=== PATIENT | male | born 1950 | race Caucasian/White ===

== ENCOUNTER 2021-08-23 04:04 | Inpatient (IN) ==
[2021-08-23] MEDS ORDERED: Naloxone 0.4 MG/ML INJ IVP PRN (07:37)
[2021-08-23] MEDS ORDERED: Ondansetron 4 MG/2 ML VIAL IVP PRN (07:37)
[2021-08-23] MEDS ORDERED: D5% in Water 1,000 ML IVC PRN (07:42)
[2021-08-23] MEDS ORDERED: *HR* Dextrose 50 % in Water (Syg) 50 ML SYRINGE IVP PRN (07:42)
[2021-08-23] MEDS ORDERED: Dextrose Gel 15 GM/37.5 ML TUBE PO PRN ×2 (07:42)
[2021-08-23] MEDS: Budesonide/Formoterol 160/4.5 1 PUFF INH IH SCH ×2 (10:10→20:22)
[2021-08-23] MEDS: Ipratropium/Albuterol Neb 3 ML IH SCH ×3 (10:10→20:21)
[2021-08-23] MEDS: Nicotine 21 MG PATCH.TD24 TD SCH (11:05)
[2021-08-23] MEDS ORDERED: Insulin LISPRO 300 UNITS/3 ML VIAL SUBQ SCH ×2 (11:30→21:00)
[2021-08-23] MEDS ORDERED: *HR* Phytonadione 5 MG TABLET PO ONE (12:58)
[2021-08-23] MEDS: Piperacillin/Tazobactam 3.375 GM in 0.9 % Sodium Chloride Mini Bag 100 ML IVPB SCH ×2 (13:56→18:30)
[2021-08-23] MEDS ORDERED: Gadolinium Contrast Agent (WT Based) IV PRN (14:46)
[2021-08-23] MEDS ORDERED: *HR* LORazepam 2 MG/ML VIAL IVP ONE ×2 (16:04→17:59)
[2021-08-23] MEDS ORDERED: Isovue-370 500 ML BOTTLE IVP ONE (17:58)
[2021-08-23] MEDS: *HR* Digoxin 0.25 MG TABLET PO SCH (18:29)
[2021-08-23] MEDS: MethylPREDNISolone 40 MG/ML VIAL IVP SCH (18:30)
[2021-08-23] MEDS: Insulin LISPRO 300 UNITS/3 ML VIAL SUBQ SCH ×2 (18:53→20:34)
[2021-08-23] MEDS ORDERED: Azithromycin 500 MG in 0.9 % Sodium Chloride 250 ML IVPB SCH (21:00)
[2021-08-23 21:45] LABS: INR 2.4; Prothrombin Time 26.2 Seconds (9.4-12.1)
[2021-08-23] MEDS: Doxycycline 100 MG in 0.9 % Sodium Chloride Mini Bag 100 ML IVPB SCH (22:50)
[2021-08-24] MEDS: MethylPREDNISolone 40 MG/ML VIAL IVP SCH ×4 (00:09→22:59)
[2021-08-24] MEDS: Piperacillin/Tazobactam 3.375 GM in 0.9 % Sodium Chloride Mini Bag 100 ML IVPB SCH ×4 (00:09→23:55)
[2021-08-24 02:38] LABS: Basophils % 0.3 %; Hematocrit 38.4 % (37.5-50.1); Hemoglobin 12.2 g/dL (12.9-16.9); Immature Granulocytes % 1.6 % (0-4); Lymphocytes # 0.6 K/mcL (0.6-4.6); Lymphocytes % 5.6 %; Mean Corpuscular HGB Conc 31.8 g/dL (31.6-35.5); Mean Corpuscular Hemoglobin 28.2 pg (28.0-33.3); Mean Corpuscular Volume 88.7 fL (83.0-100.0); Mean Platelet Volume 11.1 fL (9.4-12.4); Monocytes # 0.4 K/mcL (0.0-1.3); Monocytes % 3.5 %; Neutrophils # 9.6 K/mcL (1.6-8.9); Platelet Count 245 K/mcL (140-400); Red Blood Count 4.33 M/mcL (4.19-5.50); Red Cell Distribution Width 16.8 % (11.5-14.5); White Blood Count 10.7 K/mcL (4.3-11.1)
[2021-08-24 02:39] LABS: BUN/Creatinine Ratio 39 (6-26); Blood Urea Nitrogen 26 mg/dL (8-23); Calcium 8.1 mg/dL (8.6-10.3); Carbon Dioxide 26 mEq/L (23-29); Chloride 99 mEq/L (98-107); Glucose 259 mg/dL (70-105); Magnesium 1.8 mg/dL (1.6-2.6); Osmolality,Calculated 290 (280-300); Potassium 4.7 mEq/L (3.5-5.1); Sodium 133 mEq/L (136-145); eGFR For African Americans > 60 (> 60); eGFR For Non-African Americans > 60 (> 60)
[2021-08-24 02:52] LABS: INR 1.9; Prothrombin Time 20.6 Seconds (9.4-12.1)
[2021-08-24] MEDS: Ipratropium/Albuterol Neb 3 ML IH SCH ×4 (03:54→20:28)
[2021-08-24] MEDS: Insulin LISPRO 300 UNITS/3 ML VIAL SUBQ SCH ×4 (09:02→20:37)
[2021-08-24] MEDS: lisinopriL 20 MG TABLET PO SCH (09:05)
[2021-08-24] MEDS: Furosemide 20 MG TABLET PO SCH (09:05)
[2021-08-24] MEDS: amLODIPine 5 MG TABLET PO SCH (09:05)
[2021-08-24] MEDS: *HR* Digoxin 0.25 MG TABLET PO SCH (09:05)
[2021-08-24] MEDS: Budesonide/Formoterol 160/4.5 1 PUFF INH IH SCH ×2 (09:42→20:29)
[2021-08-24] MEDS ORDERED: Lidocaine -MPF 2% 5 ML VIAL ONE (11:21)
[2021-08-24] MEDS ORDERED: *HR* Propofol 200 MG/20 ML VIAL IVP ONE ×3 (11:51→12:36)
[2021-08-24] MEDS ORDERED: Ondansetron 4 MG/2 ML VIAL ONE (12:02)
[2021-08-24] MEDS ORDERED: Lidocaine -MPF 4% 5 ML AMPUL ONE (12:02)
[2021-08-24] MEDS ORDERED: *HR* Succinylcholine 200 MG/10 ML VIAL IVP ONE (12:02)
[2021-08-24] MEDS ORDERED: *HR* FentaNYL (PF) 100 MCG/2 ML VIAL ONE (12:02)
[2021-08-24] MEDS: Doxycycline 100 MG in 0.9 % Sodium Chloride Mini Bag 100 ML IVPB SCH ×2 (13:23→22:28)
[2021-08-24] MEDS: Insulin DETEMIR 100 UNIT/ML X5UNITS SUBQ SCH (16:26)
[2021-08-24] MEDS: Nicotine 21 MG PATCH.TD24 TD SCH (16:26)
[2021-08-25 02:39] LABS: Basophils % 0.1 %; Hematocrit 35.1 % (37.5-50.1); Hemoglobin 11.3 g/dL (12.9-16.9); Immature Granulocytes % 1.4 % (0-4); Lymphocytes # 0.5 K/mcL (0.6-4.6); Lymphocytes % 4.4 %; Mean Corpuscular HGB Conc 32.2 g/dL (31.6-35.5); Mean Corpuscular Hemoglobin 28.5 pg (28.0-33.3); Mean Corpuscular Volume 88.4 fL (83.0-100.0); Mean Platelet Volume 11.2 fL (9.4-12.4); Monocytes # 0.5 K/mcL (0.0-1.3); Monocytes % 4.3 %; Neutrophils # 10.4 K/mcL (1.6-8.9); Platelet Count 248 K/mcL (140-400); Red Blood Count 3.97 M/mcL (4.19-5.50); Segmented Neutrophils % 89.8 %; White Blood Count 11.5 K/mcL (4.3-11.1)
[2021-08-25 02:53] LABS: BUN/Creatinine Ratio 45 (6-26); Blood Urea Nitrogen 35 mg/dL (8-23); Calcium 8.5 mg/dL (8.6-10.3); Carbon Dioxide 24 mEq/L (23-29); Chloride 100 mEq/L (98-107); Glucose 286 mg/dL (70-105); Lactate Dehydrogenase 1194 Units/L (140-271); Osmolality,Calculated 294 (280-300); Potassium 4.7 mEq/L (3.5-5.1); Sodium 133 mEq/L (136-145); Uric Acid 6.3 mg/dL (2.3-7.6); eGFR For African Americans > 60 (> 60); eGFR For Non-African Americans > 60 (> 60)
[2021-08-25] MEDS: Ipratropium/Albuterol Neb 3 ML IH SCH ×4 (03:59→20:40)
[2021-08-25] MEDS: Insulin LISPRO 300 UNITS/3 ML VIAL SUBQ SCH ×2 (06:55→14:21)
[2021-08-25] MEDS: Budesonide/Formoterol 160/4.5 1 PUFF INH IH SCH ×2 (08:02→20:40)
[2021-08-25] MEDS ORDERED: MethylPREDNISolone 40 MG/ML VIAL IVP SCH (10:15)
[2021-08-25] MEDS: Doxycycline 100 MG in 0.9 % Sodium Chloride Mini Bag 100 ML IVPB SCH (10:21)
[2021-08-25] MEDS: Piperacillin/Tazobactam 3.375 GM in 0.9 % Sodium Chloride Mini Bag 100 ML IVPB SCH (10:21)
[2021-08-25] MEDS: Nicotine 21 MG PATCH.TD24 TD SCH (10:22)
[2021-08-25] MEDS: Insulin DETEMIR 100 UNIT/ML X5UNITS SUBQ SCH (10:22)
[2021-08-25] MEDS: MethylPREDNISolone 40 MG/ML VIAL IVP SCH (10:22)
[2021-08-25] MEDS: amLODIPine 5 MG TABLET PO SCH (10:23)
[2021-08-25] MEDS: Furosemide 20 MG TABLET PO SCH (10:23)
[2021-08-25] MEDS: lisinopriL 20 MG TABLET PO SCH (10:23)
[2021-08-25] MEDS: *HR* Digoxin 0.25 MG TABLET PO SCH (11:30)
[2021-08-25] MEDS ORDERED: predniSONE 20 MG TABLET PO ONE (12:54)
[2021-08-25 13:40] LABS: INR 1.2; Prothrombin Time 13.3 Seconds (9.4-12.1)
[2021-08-25 14:06] VITALS: BP 124/70; PULSE 82; TEMP 97.5; O2SAT 93
== END 2021-08-25 17:00 | disposition home or self-care (01) | DRG 191 ==
LOC: 3NENU → SUATTDRO 09:33
PROVIDERS: ADMIT Family Medicine; ATTEND Internal Medicine